=== PATIENT | male | born 1935 | race Caucasian/White ===

== ENCOUNTER 2021-02-16 20:01 | Emergency (ER) | payer OTHER ==
[~2021-02-16] VITALS: Ht 172.7 cm; Wt 77.1 kg
[2021-02-16 20:23] LABS: BASOPHILS ABSOLUTE AUTO 0.02 K/mm3 (0.00-0.23); BASOPHILS PERCENT AUTO 1 % (0-2); EOSINOPHILS ABSOLUTE AUTO 0.18 K/mm3 (0.00-0.68); EOSINOPHILS PERCENT AUTO 4 % (0-6); Hematocrit 23.4 % (37.0-53.0); Hemoglobin 7.9 g/dL (13.5-17.5); Mean Corpuscular HGB 38.3 pg (26.0-34.0); Mean Corpuscular HGB Conc 33.8 g/dL (31.5-36.5); Mean Corpuscular Volume 114 fL (80-100); Platelet Count 78 K/mm3 (150-400); RDW Coefficient Variation 15.6 % (11.7-14.2); RDW Standard Deviation 64.5 fL (35.1-46.3); Red Blood Cell Count 2.06 M/mm3 (4.30-5.90); White Blood Cell Count 4.18 K/mm3 (4.00-11.30)
[2021-02-16 20:41] LABS: Alanine Aminotransfer (ALT/SGP 26 U/L (12-78); Albumin, Blood 3.2 g/dL (3.4-5.0); Albumin/Globulin Ratio 1.1 (0.8-1.8); Alk Phos 77 U/L (50-136); Anion Gap 5 mmol/L (6-16); Aspartate Aminotrans (AST/SGOT 20 U/L (12-37); Bilirubin, Total 0.5 mg/dL (0.1-1.0); Blood Urea Nitrogen 18 mg/dL (8-24); Bun/Creatinine Ratio 17.3 (12.0-20.0); CO2, Blood 24 mmol/L (21-32); Calcium, Blood 8.1 mg/dL (8.5-10.1); Chloride, Blood 108 mmol/L (98-108); Creatinine, Blood 1.04 mg/dL (0.60-1.20); Glomerular Filtration Rate >60 (60-); Glucose, Blood 149 mg/dL (70-99); Potassium, Blood 4.9 mmol/L (3.5-5.5); Sodium, Blood 137 mmol/L (136-145); Total Protein, Blood 6.2 g/dL (6.4-8.2); Troponin I <0.015 ng/mL (0.000-0.040)
[2021-02-16 20:42] LABS: IMMATURE GRAN ABSOLUTE AUTO 0.08 K/mm3 (0.00-0.10); IMMATURE GRAN PERCENT AUTO 2 % (0-1); LYMPHOCYTES ABSOLUTE AUTO 0.47 K/mm3 (0.84-5.20); LYMPHOCYTES PERCENT AUTO 11 % (21-46); MONOCYTES ABSOLUTE AUTO 0.12 K/mm3 (0.16-1.47); MONOCYTES PERCENT AUTO 3 % (4-13); NEUTROPHILS ABSOLUTE AUTO 3.31 K/mm3 (1.96-9.15); NEUTROPHILS PERCENT AUTO 79 % (41-73)
[2021-02-16 20:55] LABS: Source, Urine Catheter
[2021-02-16 20:57] LABS: Appearance, Urine Clear (Clear); Bilirubin, Urine Neg (Neg); Blood, Urine 1+ (Neg); Color, Urine Yellow (P-Yellow); Glucose Qualitative, Urine Neg (Neg); Ketones, Urine Neg (Neg); Leukocyte Esterase, Urine Neg (Neg); Nitrite, Urine Neg (Neg); Protein, Urine Neg (Neg); Urobilinogen, Urine NORM (Normal)
[2021-02-16 21:05] LABS: Bacteria Few /hpf; Squamous Epithelial Cells Rare /hpf (Few); White Blood Cells, Urine 0-2 /hpf (0-5)
== END 2021-02-16 22:00 | disposition home or self-care (01) ==
LOC: ER 20:01
PROVIDERS: Emergency Medicine
DX: R55 Syncope and collapse (principal); R33.9 Retention of urine, unspecified
CPT/HCPCS: 51702; 51798; 71045; 80053; 81001; 84484; 85025; 93005; 93010; 99285-25

== ENCOUNTER 2021-04-08 01:34 | Day surgery (SDC) | payer OTHER ==
[2021-04-07 10:20] LABS: Hematocrit 22.1 % (37.0-53.0); Mean Corpuscular HGB 38.9 pg (26.0-34.0); Mean Corpuscular HGB Conc 31.7 g/dL (31.5-36.5); Mean Corpuscular Volume 123 fL (80-100); Mean Platelet Volume 12.1 fL (9.1-12.4); NRBC ABSOLUTE 0.02 K/mm3 (0.00-0.02); NRBC Auto 0.9 /100 WBC (0.0-0.2); Platelet Count 346 K/mm3 (150-400); RDW Coefficient Variation 17.5 % (11.7-14.2); RDW Standard Deviation 77.7 fL (35.1-46.3); White Blood Cell Count 2.21 K/mm3 (4.00-11.30)
[2021-04-07 10:40] LABS: Alanine Aminotransfer (ALT/SGP 29 U/L (12-78); Albumin, Blood 2.8 g/dL (3.4-5.0); Albumin/Globulin Ratio 0.7 (0.8-1.8); Alk Phos 100 U/L (50-136); Anion Gap 3 mmol/L (6-16); Aspartate Aminotrans (AST/SGOT 30 U/L (12-37); Bilirubin, Total 0.3 mg/dL (0.1-1.0); Blood Urea Nitrogen 14 mg/dL (8-24); Bun/Creatinine Ratio 13.5 (12.0-20.0); CO2, Blood 26 mmol/L (21-32); Calcium, Blood 8.7 mg/dL (8.5-10.1); Chloride, Blood 110 mmol/L (98-108); Creatinine, Blood 1.04 mg/dL (0.60-1.20); Globulin, Blood 4.1 g/dL (2.2-4.0); Glomerular Filtration Rate >60 (60-); Glucose, Blood 149 mg/dL (70-99); Potassium, Blood 4.4 mmol/L (3.5-5.5); Sodium, Blood 139 mmol/L (136-145); Total Protein, Blood 6.9 g/dL (6.4-8.2)
[2021-04-07 12:04] LABS: BASOPHILS ABSOLUTE MAN 0.22 K/mm3 (0.00-0.23); BASOPHILS PERCENT MAN 10 % (0-2); EOSINOPHILS ABSOLUTE MAN 0.39 K/mm3 (0.00-0.68); EOSINOPHILS PERCENT MAN 18 % (0-6); LYMPHOCYTES ABSOLUTE MAN 0.72 K/mm3 (0.84-5.20); LYMPHOCYTES PERCENT MAN 33 % (21-46); MONOCYTES ABSOLUTE MAN 0.02 K/mm3 (0.16-1.47); MONOCYTES PERCENT MAN 1 % (4-13); NEUTROPHILS ABSOLUTE MAN 0.83 K/mm3 (1.96-9.15); SEG NEUTROPHILS PERCENT MAN 38 % (41-73); TOTAL CELLS COUNTED 100
[2021-04-08] MEDS ORDERED: OMEGA MONOPURE PO (09:25)
[2021-04-08] MEDS ORDERED: MAGNESIUM OXID500 MG PO (09:25)
[2021-04-08] MEDS ORDERED: ASCO500 PO (09:26)
[2021-04-08] MEDS ORDERED: Vitamin B-12100 MCG PO (09:26)
== END 2021-04-08 11:23 | disposition home or self-care (01) ==
LOC: ATC 01:34 → EDSTATUS 03-31 13:30 → LAB FUT 03-31 13:30
PROVIDERS: Internal Medicine Hematology & Oncology
DX: D46.22 Refractory anemia with excess of blasts 2 (principal); I25.10 Atherosclerotic heart disease of native coronary artery without angina pectoris
CPT/HCPCS: 36415; 36430; 80053; 85025; 86850; 86900; 86901; 86920; J1642; J7050; P9016

== ENCOUNTER → 2022-06-10 | Outpatient (CLI) | payer OTHER ==
[~2022-06-10] MED LIST: ASCO500 PO; MAGNESIUM OXID500 MG PO; OMEGA MONOPURE PO; Vitamin B-12100 MCG PO
== END ==
LOC: PLD 15:05 → LAB SHORT 15:05 → LAB 15:05
DX: D48.5 Neoplasm of uncertain behavior of skin (principal)
CPT/HCPCS: 88305

== ENCOUNTER → 2022-07-21 | Outpatient (CLI) | payer OTHER | END | disposition home or self-care (01) | LOC: PLD 08:24 → LAB SHORT 08:24 | DX: C44.320 Squamous cell carcinoma of skin of unspecified parts of face (principal) | CPT/HCPCS: 88305 ==

== ENCOUNTER 2023-02-10 05:01 | Day surgery (SDC) | payer OTHER ==
[2023-02-08 13:50] LABS: Hematocrit 20.6 % (37.0-53.0); Hemoglobin 6.9 g/dL (13.5-17.5); Mean Corpuscular HGB 36.1 pg (26.0-34.0); Mean Corpuscular HGB Conc 33.5 g/dL (31.5-36.5); Mean Corpuscular Volume 108 fL (80-100); Mean Platelet Volume 12.7 fL (9.1-12.4); Platelet Count 185 K/mm3 (150-400); RDW Coefficient Variation 17.2 % (11.7-14.2); RDW Standard Deviation 65.3 fL (35.1-46.3); Red Blood Cell Count 1.91 M/mm3 (4.30-5.90)
[2023-02-08 13:54] LABS: BASOPHILS PERCENT AUTO 0 % (0-2); EOSINOPHILS PERCENT AUTO 0 % (0-6); IMMATURE GRAN ABSOLUTE AUTO 0.01 K/mm3 (0.00-0.10); IMMATURE GRAN PERCENT AUTO 1 % (0-1); LYMPHOCYTES ABSOLUTE AUTO 0.51 K/mm3 (0.84-5.20); LYMPHOCYTES PERCENT AUTO 53 % (21-46); MONOCYTES ABSOLUTE AUTO 0.08 K/mm3 (0.16-1.47); MONOCYTES PERCENT AUTO 8 % (4-13); NEUTROPHILS ABSOLUTE AUTO 0.36 K/mm3 (1.96-9.15); NEUTROPHILS PERCENT AUTO 38 % (41-73)
[2023-02-08 13:56] LABS: White Blood Cell Count 0.96 K/mm3 (4.00-11.30)
[2023-02-08 14:39] LABS: Albumin, Blood 3.7 g/dL (3.4-5.0); Bilirubin, Total 1.2 mg/dL (0.1-1.0); Bun/Creatinine Ratio 24.5 (12.0-20.0); Calcium, Blood 8.9 mg/dL (8.5-10.1); Creatinine, Blood 1.1 mg/dL (0.60-1.20); Globulin, Blood 3.8 g/dL (2.2-4.0); Potassium, Blood 3.8 mmol/L (3.5-5.5); Total Protein, Blood 7.5 g/dL (6.4-8.2)
[2023-02-10] VITALS (7 sets, daily range): BP systolic 119–143; BP diastolic 47–89
[2023-02-10] MEDS ORDERED: INQOVI 35 MG-11 EACH PO (15:45)
[2023-02-10] MEDS ORDERED: ASPI81CH PO (15:45)
[2023-02-10] MEDS ORDERED: IRON18 MG PO (15:46)
[2023-02-10] MEDS ORDERED: Alph-E-Mixed400 UNIT PO (15:46)
--- NOTE | 2023-02-10 16:52 | NUR ---
AT [address] KUMAR'S OFFICE TO UPDATE THAT THE TYLENOL HAS NOT BROUGHT DOWN THE FEVER, AND THE PT IS ACTUALLY WARMER AT 101.8. HUMBLE OWENS SPOKE WITH DR KUMAR AND DR HERNDON LONG NO OTHER SYMPTOMS PT MAY CONT WITH INFUSION AND CONTINUE TAKING TYLENOL Q4-6 HOURS AT HOME FOR FEVERS.
--- NOTE | 2023-02-10 17:52 | NUR ---
PT WAS DC'D HOME IN THE CARE OF HIS DAUGHTER AND . PT CONTINUED TO HAVE A FEVER. PTS DAUGHTER WAS INSTRUCTED TO GIVE PT TYLENOL 650 MG EVERY 4-6 HOURS, BUT NO MORE THAN 4000 MG IN A 24 HOUR PERIOD AND TO CALL THE DOCTOR OR GO TO THE ER IF PT CONDITION WORSENS TONIGHT OR IF HE CONTINUES HAVE A HIGH FEVER TOMORROW, SHE VERBALIZED UNDERSTANDING.
== END 2023-02-10 17:47 | disposition home or self-care (01) ==
LOC: ATC 05:01 → EDSTATUS 01-15 14:50 → LAB FUT 01-15 14:50
PROVIDERS: Internal Medicine Hematology & Oncology
DX: D46.22 Refractory anemia with excess of blasts 2 (principal); I25.10 Atherosclerotic heart disease of native coronary artery without angina pectoris; H54.40 Blindness, one eye, unspecified eye; D61.818 Other pancytopenia; D69.6 Thrombocytopenia, unspecified
CPT/HCPCS: 36415; 36430; 80053; 85025; 86850; 86900; 86901; 86923; A9270; J1642; J7050; P9016